=== PATIENT | female | born 1980 | race Caucasian/White ===

== ENCOUNTER 2022-11-04 08:51 | Outpatient (CLI) | payer BC, SELFPAY ==
--- NOTE | 2022-11-04 07:50 | ECHO_ITS ---
Patient Info Name: Micki Sims Age: 42 years : 1980 Gender: Female Ht: 63 in Wt: 126 lbs BSA: 1.60 m2 HR: 60 bpm BP: 100 / 68 mmHg Technical Quality: Good Exam Date: 11/04/2022 8:37 AM Exam Location: [facility] Patient Status: Outpatient Admit Date: 11/04/2022 Staff Ordering Physician: Kelby Peters MD Screen Printing Stencil Preparer: Yobani [place], LIBAN, RT Attending Provider: Kelby Peters MD Referring Physician: Lorraine MONTANO; Exam Type: CA echo doppler color flow Study Info Indications R07.9 - Chest pain, unspecified Complete two-dimensional, color flow and Doppler transthoracic echocardiogram is performed. Strain analysis performed. Summary 1. Complete two-dimensional, color flow and Doppler transthoracic echocardiogram is performed. 2. Left ventricular chamber dimension is normal. 3. Left ventricular systolic function is normal, estimated at 60-65%. 4. The left ventricular diastolic function is normal. 5. E/e' 5 is not elevated. 6. Global longitudinal strain is normal at -23.5%. 7. There is mild mitral valve regurgitation. 8. There is trace tricuspid valve regurgitation. Left Ventricle E/e' 5 is not elevated. Global longitudinal strain is normal at -23.5%. Left ventricular chamber dimension is normal. Left ventricular systolic function is normal, estimated at 60-65%. The left ventricular diastolic function is normal. Right Ventricle Right ventricular systolic function is normal and with normal TAPSE 2.0 cm. Right ventricular chamber dimension is normal. Left Atria Left atrial chamber dimension is normal. Right Atria Right atrial chamber dimension is normal. Aortic Valve The aortic valve is trileaflet. There is no aortic valve stenosis. There is no aortic valve regurgitation. Pulmonic Valve There is no pulmonic regurgitation. Mitral Valve There is no mitral valve stenosis. There is mild mitral valve regurgitation. Tricuspid Valve There is trace tricuspid valve regurgitation. RVSP is not calculated due to an inadequate TR jet. Pericardium/Pleural There is no pericardial effusion. Inferior Vena Cava Normal inferior vena cava with >50% collapse upon inspiration consistent with normal right atrial pressure, 5 mmHg. Aorta The aortic root size at the sinus of Valsalva is normal. Left Ventricular Outflow Tract Name Value Normal LVOT 2D LVOT Diameter 1.9 cm LVOT Doppler LVOT Peak Gradient 5 mmHg LVOT Mean Gradient 2 mmHg LVOT VTI 27 cm LVOT VTI/AV VTI Ratio 0.9 LVOT Stroke Volume 75 ml LVOT CO 3.9 l/min LVOT CI 2.4 l/min/m2 Mitral Valve Name Value Normal MV Doppler MV Peak
--- NOTE | 2022-11-04 08:03 | EST_ITS ---
Patient Info Name: Micki Sims Age: 42 years : 1980 Gender: Female Ht: 63 in Wt: 126 lbs BSA: 1.60 m2 HR: 52 bpm BP: 117 / 70 mmHg Heart Rhythm: Sinus Rhythm Exam Date: 11/04/2022 9:04 AM Exam Location: [facility] Patient Status: Outpatient Admit Date: 11/04/2022 Staff Ordering Physician: Kelby Peters MD Attending Provider: Kelby Peters MD Exercise Technologist: Ladi Santiago CT Exercise Physician: Manolo Machado DO Exam Type: CA stress test treadmill Study Info Indications R00.2 - Palpitations A treadmill exercise stress test was performed. Summary 1. 1. Negative Benjamin exercise stress test for ischemic ST changes by ECG criteria. 2. 2. Good functional capacity, achieving 12 METs of workload. 3. 3. Appropriate HR response to exercise. 4. 4. Appropriate HR recovery at 1 minute post exercise. 5. 5. No imaging with stress testing. 6. 6. Patient informed of the above results. Protocol: Benjamin Stress ECG Details Stage: REST Duration (min): 1 min : 4 sec Speed (mph): 0.0 Grade (%): 0 HR (bpm): 47 SBP (mmHg): 117 DBP (mmHg): 70 METS: --- Stage: REST Duration (min): 7 min : 11 sec Speed (mph): 0.0 Grade (%): 0 HR (bpm): 55 SBP (mmHg): 117 DBP (mmHg): 70 METS: --- Stage: STAGE 1 Duration (min): 1 min : 0 sec Speed (mph): 1.7 Grade (%): 10 HR (bpm): 81 SBP (mmHg): 117 DBP (mmHg): 70 METS: --- Stage: STAGE 1 Duration (min): 2 min : 0 sec Speed (mph): 1.7 Grade (%): 10 HR (bpm): 89 SBP (mmHg): 117 DBP (mmHg): 70 METS: --- Stage: STAGE 1 Duration (min): 3 min : 0 sec Speed (mph): 1.7 Grade (%): 10 HR (bpm): 94 SBP (mmHg): 116 DBP (mmHg): 64 METS: --- Stage: STAGE 2 Duration (min): 1 min : 0 sec Speed (mph): 2.5 Grade (%): 12 HR (bpm): 103 SBP (mmHg): 116 DBP (mmHg): 64 METS: --- Stage: STAGE 2 Duration (min): 2 min : 0 sec Speed (mph): 2.5 Grade (%): 12 HR (bpm): 111 SBP (mmHg): 148 DBP (mmHg): 62 METS: --- Stage: STAGE 2 Duration (min): 3 min : 0 sec Speed (mph): 2.5 Grade (%): 12 HR (bpm): 117 SBP (mmHg): 148 DBP (mmHg): 62 METS: --- Stage: STAGE 3 Duration (min): 1 min : 0 sec Speed (mph): 3.4 Grade (%): 14 HR (bpm): 122 SBP (mmHg): 185 DBP (mmHg): 65 METS: --- Stage: STAGE 3 Duration (min): 2 min : 0 sec Speed (mph): 3.4 Grade (%): 14 HR (bpm): 138 SBP (mmHg): 181 DBP (mmHg): 58 METS: --- Stage: STAGE 3 Duration (min): 3 min : 0 sec Speed (mph): 3.4 Grade (%): 14 HR (bpm): 146 SBP (mmHg): 166 DBP (mmHg): 63 METS: --- Stage: STAGE 4 Duration (min): 1 min : 0 sec Speed (mph): 4.2 Grade (%): 16 HR (bpm): 162 SBP (mmHg): 166 DBP (mmHg): 63 METS: ---
[2022-11-04 10:28] LABS: Basophils Percent Auto 0.5 % (0.2-1.2); Eosinophils Absolute Auto 0.1 K/mm3 (0-0.3); Eosinophils Percent Auto 2.1 % (0-4.4); Hematocrit 37.5 % (37.0-47.0); Hemoglobin 12.5 g/dL (12.0-15.0); Immature Granulocyte Absolute 0.01 K/mm3 (0.00-0.031); Immature Granulocyte Percent A 0.2 % (0-0.5); Lymphocytes Percent Auto 29.2 % (18.3-44.2); Mean Corpuscular HGB Conc 33.3 g/dl (32-36); Mean Corpuscular Hemoglobin 31.6 pg (26-34); Mean Corpuscular Volume 94.7 fl (80-100); Mean Platelet Volume 11.1 fl (7.4-10.4); Monocytes Absolute Auto 0.4 K/mm3 (0.1-0.6); Monocytes Percent Auto 6.5 % (2.6-8.5); Neutrophils Absolute Auto 3.6 K/mm3 (1.3-6.7); Neutrophils Percent Auto 61.5 % (45.5-73.1); Platelet Count Result 199 k/mm3 (150-375); Red Blood Count 3.96 M/mm3 (4.2-5.4); Red Cell Distribution Width 11.9 % (11.5-14.5); White Blood Count 5.8 K/mm3 (4.5-10.0)
[2022-11-04 10:35] LABS: Appearance Urine Clear (Clear); Bacteria Urine None Seen /hpf; Bilirubin Urine Negative (Negative); Blood Urine 1+ (Negative); Color Urine Yellow (Yellow); Glucose Urine UA Negative (Negative); Ketones Urine Negative (Negative); Leukocyte Esterase Ur Negative LEU/UL (NEGATIVE); Nitrate Urine Negative (Negative); Non Pathogenic Casts 0-2; Protein Urine Negative (Negative); RBC Urine 0-2 /hpf (0-2); Specific Grav Ur 1.016 (1.001-1.035); Squamous Epithelial Cell Urine Occasional /hpf (Few); Urobilinogen Urine 0.2 mg/dL (<2.0); WBC Urine 0-5 /hpf (0-3)
[2022-11-04 10:47] LABS: Alanine Aminotransferase 23 U/L (6-35); Albumin Level 4.1 g/dL (3.5-5.1); Alkaline Phosphatase 93 U/L (38-126); Anion Gap 6 mmol/L (8-16); Aspartate Amino Transferase 26 U/L (14-36); Bilirubin,Total 0.5 mg/dL (0.2-1.3); Blood Urea Nitrogen 16 mg/dL (7-17); Carbon Dioxide 27 mmol/L (22-30); Chloride 107 mmol/L (98-107); Cholesterol 179 mg/dL (0-200); Estimated Glomerular Filt Rate > 60; Glucose 89 mg/dL (65-110); HDL Direct 52 mg/dL; Potassium 3.9 mmol/L (3.4-5.0); Sodium 140 mmol/L (137-145); Triglycerides 53 mg/dL (<150)
[2022-11-04 10:48] LABS: Iron 93 ug/dL (37-170)
[2022-11-04 10:51] LABS: Rheumatoid Factor < 8.6 IU/ML (<12)
[2022-11-04 10:55] LABS: Add Urine Microscopic? YES
[2022-11-04 10:57] LABS: Erythrocyte Sedimentation Rate 23 mm/hr (0-20)
[2022-11-04 10:58] LABS: LDL Cholesterol Direct 102 mg/dL
[2022-11-04 11:53] LABS: Folic Acid 12.8 ng/mL (2.76->20)
--- NOTE | 2022-11-06 12:31 | WPDHOLTEREM ---
Holter/Event Monitor Holter/Event Monitor Date of procedure: 11/04/22 Holter/Event Procedure: 24 Hr Holter Monitor Indications: Chest pain Conclusion: 1. 24 hour holter monitor on 11/04/22. 2. Underlying rhythm is sinus rhythm. HR range 37-138 bpm; average HR 68 bpm. 3. There are 5 premature supraventricular complexes and 1 supraventricular couplet. No supraventricular tachycardia. 4. There are 159 premature ventricular complexes. No ventricular tachycardia. 5. No sinoatrial or atrioventricular blocks. No significant pauses greater than 2 seconds. 6. Patient reports symptom of rapid heart rate which demonstrate sinus rhythm at 63 bpm.
[2022-11-07 13:18] LABS: ANA Cascade Screen Negative (Negative)
== END 2022-11-04 08:52 | disposition home or self-care (01) ==
PROVIDERS: PCP Family Medicine; Visit Provider Family Medicine
DX: R07.89 Other chest pain (principal); R00.2 Palpitations; I34.0 Nonrheumatic mitral (valve) insufficiency; M19.90 Unspecified osteoarthritis, unspecified site; M54.50 Low back pain, unspecified; G89.29 Other chronic pain; E78.2 Mixed hyperlipidemia; F41.9 Anxiety disorder, unspecified
CPT/HCPCS: 36415; 80053; 80061; 81001; 82607; 82728; 82746; 83540; 84439; 84443; 85025; 85652; 86038; 86430; 93017; 93225; 93226; 93306

== ENCOUNTER 2022-12-23 15:08 | Outpatient (CLI) | payer BC, SELFPAY ==
--- NOTE | ~2022-12-23 | MM_ITS ---
EXAMINATION: MM screening shboha BI w shira HISTORY: Screening mammogram TECHNIQUE: Craniocaudal and mediolateral oblique 3-D tomosynthesis images were obtained and synthetic 2-D images were generated. CAD analysis was submitted and interpreted. COMPARISON: None, baseline BREAST PARENCHYMAL COMPOSITION: The breasts are heterogeneously dense, which may obscure small masses . FINDINGS: No suspicious mass, calcification, or architectural distortion are identified in either valerio ast to suggest malignancy. IMPRESSION: 1. No mammographic evidence of malignancy. 2. Recommend routine screening mammography in one year. BI-RADS Category 1: Negative Reviewed, dictated and finalized at location A.
== END 2022-12-23 15:09 | disposition home or self-care (01) ==
PROVIDERS: PCP Family Medicine; Visit Provider Family Medicine
DX: Z12.31 Encounter for screening mammogram for malignant neoplasm of breast (principal)
CPT/HCPCS: 77063; 77067

== ENCOUNTER 2023-11-17 15:18 | Outpatient (CLI) | payer OTHER, SELFPAY ==
--- NOTE | ~2023-11-17 | CT_ITS ---
EXAMINATION: CT abdomen pelvis wo con DATE: 11/17/2023 15:49 INDICATION: Microscopic hematuria. Acute lower abdominal pain. TECHNIQUE: Computed tomography (CT) of the abdomen and pelvis was performed without intravenous contr ast. Automated exposure control and iterative reconstruction technique were employed. The dose-length product was 264.18 mGy-cm. COMPARISON: None FINDINGS: Visualized lower lungs are clear. Heart size is normal. Atherosclerotic coronary artery calcific a cy st versus stenting along the left anterior descending coronary artery. No pericardial or pleural effu armando. Liver, gallbladder, spleen, pancreas and bilateral adrenal glands are normal. Bilateral nonobst ructing nephrolithiasis with 6 mm and 2 mm stones at a lower pole calyx of the right kidney and 1 cm stone at a lower pole calyx of the left kidney. No ureteral stones or hydronephrosis. There is mild c olonic diverticulosis with a sigmoid predominance. There is no adjacent inflammatory change to sugge st diverticulitis. Small bowel and appendix are normal. Bladder, uterus and left adnexa are unremark able. 2.5 cm right adnexal cyst/follicle. No free intraperitoneal gas or fluid. No pathologically enl arged abdominal or pelvic lymphadenopathy. Severe disc height loss at L5-S1. Additional more cephalad mild lumbar and moderate lower thoracic spondylosis. IMPRESSION: 1. Bilateral nonobstructing nephrolithiasis. Reviewed, dictated and finalized at location B.
== END 2023-11-17 15:19 | disposition home or self-care (01) ==
LOC: ANHIMG 15:20
PROVIDERS: Visit Provider Family Medicine
DX: N20.0 Calculus of kidney (principal)
CPT/HCPCS: 74176

== ENCOUNTER → 2024-12-12 16:40 | Outpatient (CLI) | payer OTHER, SELFPAY ==
--- NOTE | ~2024-12-12 | XR_ITS ---
AP view of the pelvis and AP and lateral views of the left hip Clinical history: Arthritis Findings: No acute fracture or dislocation is seen. Osseous alignment is anatomic. Bilateral hip and SI joint spaces are preserved. Soft tissues are unremarkable. Impression: No significant abnormality is seen. Reviewed, dictated and finalized at location . Impression: No significant abnormality is seen.
--- OUTSIDE RECORDS SUMMARY | 2024-12-12 17:09 | XMS_ITS | CONTINUITY OF CARE DOCUMENT ---
Author Name malorie espana Address Unknown Organization [facility] Address [address] [place] [address] Phone [phone] Care Team Providers Care Photolithographic Stripper Name Role Phone Tricia Peguero MD Unavailable Tricia Peguero MD Unavailable [phone] MARGARET LEVY MD Unavailable [phone] PROBLEMS Condition Status Date Provider Notes AMI anterior wall active Tricia Rico Hypercholesterolemia active Tricia goldsmith MD Tobacco abuse- hx of active Tricia goldsmith MD Kidney stones active Tricia Pegeuro MD Cardiovascular Condition Screening active S leighton Peguero MD Cardiomyopathy active Tricia Peguero MD Cardiology examination active Scott Dumont Preop cardiovasc. examination active Scott Dumont ENCOUNTERS Date Type Provider Location Encounter Diag nosis 4 - 7 In-person encounter Office Visit Tricia Peguero MD [facility] Cardiology examinationPreop cardiovasc. examination 6 - 8 In-person encounter Office Visit Tricia Peguero MD [facility] 9 - 1 In-person encounter Office Visit Tricia Peguero MD [facility] Cardiomyopathy 1 - 4 In-person encounter Office Visit Tricia Peguero MD [facility] AMI anterior wallHypercholesterolemiaTobacco abuse- hx ofKidney stonesCardiovascular Condition Screening VITAL SIGNS Date Observation Value Provider Body Mass Index (Ratio) 23.86 kg/m2 Puma Dumont blood pressure, diastolic 69 mm[Hg] Ky linda Lofton blood pressure, systolic 125 mm[Hg] Melissa katz Lofton oxygen saturation, oximetry 100 % [facility] pulse rate 53 /min [facility] blood pressure, cuff size regular Dave linda Lofton weight E&M 139.0 [lb_av] Kyaron Lofton height E&M 64 [in_i] [facility] Body Mass Index (Ratio) 23.51 kg/m2 Daphney ssa Puhse blood pressure, diastolic 59 mm[Hg] Li nkLogic blood pressure, systolic 113 mm[Hg] Hanh kLogic pulse rate 54 /min Barb Posley respiratory rate E&M 16 /min Barb Posley oxygen saturation, oximetry 99 % Barb Posley blood pressure, cuff size regular Le slie Posley blood pressure, diastolic 59 mm[Hg] Le slie Posley blood pressure, systolic 113 mm[Hg] Les lie Posley weight E&M 137 [lb_av] Barb Posley height E&M 64 [in_i] Barb Posley Body Mass Index (Ratio) 23.00 kg/m2 Sid Peguero MD blood pressure, diastolic 67 mm[Hg] Bridget Gutierrez blood pressure, systolic 109 mm[Hg] Any agus Gutierrez pulse rate 55 /min Pollyagus Gutierrez weight E&M 134 [lb_av] Polly Matt blood pressure, cuff size regular An shailesh Gutierrez height E&M 64 [in_i] Polly Gutierrez Body Mass Index (Ratio) 22.31 kg/m2 Daphney larkin Puhse blood pressure, diastolic 59 mm[Hg] Lena nkLogic blood pressure, systolic 104 mm[Hg] Hanh kLogic blood pressure, cuff size regular Edenilson novak [place] blood pressure, diastolic 59 mm[Hg] Edenilson novak [place] blood pressure, systolic 104 mm[Hg] Carlton [facility] pulse rate 54 /min Brenda [place] oxygen saturation, oximetry 100 % Brenda [place] respiratory rate E&M 18 /min Brenda Edelmira iller weight E&M 130 [lb_av] Brenda [place] height E&M 64 [in_i] Brenda [place] ALLERGIES No Known Drug Allergies HISTORY OF MEDICATION USE Medication Status Instructions Dates Provider Indications Com ments atorvastatin 40 mg tablet active Take 1 tablet by mouth once daily Tricia Peguero MD losartan 25 mg tablet active Take 1/2 tablet by mouth once a day CHECK BLOOD PRESSURE AND HEART RATE BEFORE TAKING THIS MEDICATION Tricia Peguero MD losartan 25 mg tablet completed Take 1 tablet by mouth once a day CHECK BLOOD PRESSURE AND HEART RATE BEFORE TAKING THIS MEDICATION - Tricia Peguero MD losartan 25 mg tablet completed TAKE 1 TABLET BY MOUTH ONCE A DAY. CHECK BLOOD PRESSURE AND HEART RATE BEFORE TAKING THIS MEDICATION - Judith Desouza atorvastatin 40 mg tablet completed TAKE ONE TABLET BY MOUTH ONCE DAILY - Tricia Peguero MD losartan 25 mg tablet completed TAKE 1/2 TABLET BY MOUTH ONCE A DAY. CHECK BLOOD PRESSURE AND HEART RATE BEFORE TAKING THIS MEDICATION - Sathish [place] duloxetine 30 mg capsule,delayed release(DR/EC) active [facility] aspirin 81 mg tablet,delayed release (DR/EC) active Take 1 tablet by mouth once a day TAKE 1 TABLET BY MOUTH ONCE A DAY Tricia Peguero MD clopidogrel 75 mg tablet active TAKE 1 TABLET BY MOUTH EVERY DAY Tricia Peguero MD sulfamethoxazol e-trimethoprim 800-160 mg tablet completed - Constantino Galan NP losartan 25 mg tablet completed Take 1/2 tablet by mouth once a day - Sathish atorvastatin 20 mg tablet completed TAKE ONE TABLET BY MOUTH ONCE DAILY - Constantino Galan NP SOCIAL HISTORY Date Observation Value Provider personal history of marijuana use no Tricia Peguero MD drug use no Tricia goldsmith MD alcohol use, average drinks per day darby Peguero MD alcohol use yes Tricia goldsmith MD smoking, year quit 2023 Tricia Peguero MD cigarette use yes Tricia doss MD smoking status Former smoker Tricia lara MD personal history of marijuana use no Tricia Peguero MD drug use no Tricia goldsmith MD alcohol use, average drinks per day darby Peguero MD alcohol use yes Tricia goldsmith MD smoking, year quit 2023 Tricia Peguero MD cigarette use yes Tricia doss MD smoking status Former smoker Tricia lara MD personal history of marijuana use no Constantino Galan NP drug use no Constantino Galan NP alcohol use, average drinks per day sociagus Galan NP alcohol use yes Constantino Galan NP smoking, year quit 2023 Polly Rashaun ia cigarette use yes Polly Gutierrez smoking status Former smoker Polly rivas number of grandchildren Tricia Peguero MD FUNCTIONAL STATUS Date Observation Value Provider HRA, CV Assess/Plan, Angina (inactive) Management Plan continue current therapy Tricia Peguero MD HRA, CV Assess/Plan, Angina (inactive) Management Plan continue current therapy Tricia Peguero MD HRA, CV Assess/Plan, Angina (inactive) Management Plan continue current therapy Constantino Galan NP INSURANCE PROVIDERS Payer name Policy type / Coverage type [employer] party ID [id number] Other [id number] ADVANCE DIRECTIVES Name Date DISCUSSED - NO DECISION MADE TREATMENT PLAN Date Name Performer Cardiology:CAD SHAY x 2 LAD 3x 18 and 3.5 x 18 Xience 10/27/23 Her updated medication list for this problem includes: Clopidogrel 75 Mg Tablet (Clopidogrel) ..... Take 1 tablet by mouth every day Aspirin 81 Mg Tablet,delayed Release (dr/ec) (Aspirin) ..... Take 1 tablet by mouth once a day take 1 tablet by mouth once a day 2 stents LAD DAPT asa/plavix r emains on dapt will need to complete 12 months August 09, 2024 c ontinues ASA plavix no bleeding issues T his visit has been a part of the consistent, comprehensive, and ongoing management of the chronic medical condition(s) listed above for the patient. Tricia Peguero MD Cardiology: l ast ov n ot a candidate to have any surgical procedure done for at least 90 days p referably 6 months or more to reduce the risk of sub acute stent thrombosis. December 03, 2023 e very so often has blood in urine but otherwise no symptoms currently W ILL NEED TO HOLD OFF ON KIDNEY STONE SURGICAL MANAGEMENT SHE NEEDS TO COMPLETE ATLEAST 6M PREFERABLY 12M DAPT WITH ASA PLAVIX FOR EXTENSIVE CAD NOTED IN THE LAD April 21, 2024 S he is having hematuria. No clots. Will need to check her hemoglobin level IF HEMATURIA WORSENS.Will need to see a urologist. HEMATURIA IS INTERMITTENT. ARRANGE FOR KIDNEY CT TO BE DONE TO COMPARE TO PREV CT DONE IN OctAugust 09, 2024 n o recent issues Tricia Peguero MD Cardiology: N ot smoking Tricia Peguero MD Cardiology: H er updated medication list for this problem includes: Atorvastatin 40 Mg Tablet (Atorvastatin) ..... Take 1 tablet by mouth once daily This visit has been a part of the consistent, comprehensive, and ongoing management of the chronic medical condition(s) listed above for the patient. Tricia Peguero MD Cardiology:planning on having colonoscopy on Oct 23 2024, she will have completed just shy of a few days one year of DAPT, it will be okay for her to come off of plavix 3-5 days prior to procedure and resume afterwards. Upon review of invasive and noninvasive testing and recent exam the patient is an acceptable candidate for the planned surgical procedure recommend to maintain his blood pressure range of 110 to 140 mmHg and a heart rate of 60-80 B p.m.. It is okay to use IV beta blockers calcium channel blockers nitrates and afterload reducing agents to maintain the aforementioned hemodynamics parameters. Tele monitoring and EKG should be done if the patient has arrhythmia during procedure Tricia Peguero MD Cardiology: O K TO D/C LIFEVEST LVEF WAS APPROX 60% ON TODAYS ECHO ON December 03, 2023 M ILD MR NOTED ON ECHO. April 21, 2024 M arked improvement of LV function post CT, echo EF normalized to 60-65% Tricia Peguero MD Cardiology: H er updated medication list for this problem includes: Clopidogrel 75 Mg Tablet (Clopidogrel) ..... Take 1 tablet by mouth every day Aspirin 81 Mg Tablet,delayed Release (dr/ec) (Aspirin) ..... Take 1 tablet by mouth once a day take 1 tablet by mouth once a day 2 stents LAD DAPT asa/plavix r emains on dapt will need to complete 12 months Tricia Peguero MD Cardiology:Lipids re viewed continue on Lipitor 40 mg H er updated medication list for this problem includes: Atorvastatin 40 Mg Tablet (Atorvastatin) ..... Take one tablet by mouth once daily This visit has been a part of the consistent, comprehensive, and ongoing management of the chronic medical condition(s) listed above for the patient. Tricia Peguero MD Cardiology: l ast ov n ot a candidate to have any surgical procedure done for at least 90 days p referably 6 months or more to reduce the risk of sub acute stent thrombosis. December 03, 2023 e very so often has blood in urine but otherwise no symptoms currently W ILL NEED TO HOLD OFF ON KIDNEY STONE SURGICAL MANAGEMENT SHE NEEDS TO COMPLETE ATLEAST 6M PREFERABLY 12M DAPT WITH ASA PLAVIX FOR EXTENSIVE CAD NOTED IN THE LAD April 21, 2024 S he is having hematuria. No clots. Will need to check her hemoglobin level IF HEMATURIA WORSENS.Will need to see a urologist. HEMATURIA IS INTERMITTENT. ARRANGE FOR KIDNEY CT TO BE DONE TO COMPARE TO PREV CT DONE IN OCT Tricia Peguero MD Cardiology:Not smoking Tricia Peguero MD Cardiology: a ssure WCD until next echo is completed April 21, 2024 N o need for ICD since her LV function is normal Tricia Peguero MD Cardiology:OK TO D/C LIFEVEST LVEF WAS APPROX 60% ON TODAYS ECHO ON December 03, 2023 M ILD MR NOTED ON ECHO. Constantino Galan NP Cardiology:last ov n ot a candidate to have any surgical procedure done for at least 90 days p referably 6 months or more to reduce the risk of sub acute stent thrombosis. December 03, 2023 e very so often has blood in urine but otherwise no symptoms currently W ILL NEED TO HOLD OFF ON KIDNEY STONE SURGICAL MANAGEMENT SHE NEEDS TO COMPLETE ATLEAST 6M PREFERABLY 12M DAPT WITH ASA PLAVIX FOR EXTENSIVE CAD NOTED IN THE LAD Constantino Galan NP Cardiology: T OTAL 150, TRI 77, HDL 65, LDL 70, LPa 49.2 (11/2023) H er updated medication list for this problem includes: Atorvastatin 20 Mg Tablet (Atorvastatin) ..... Take one tablet by mouth once daily i nrease lipitor to 40mg Constantino Galan NP Cardiology: 2 stents LAD DAPT asa/plavix r emains on dapt will need to complete 12 months Constantino Galan NP Cardiology:assure WCD until next echo is completed Tricia Peguero MD Cardiology:not a can didate to have any surgical procedure done for at least 90 days p referably 6 months or more to reduce the risk of sub acute stent thrombosis. Triica Peguero MD Cardiology:2 stents LAD DAPT asa plavix Tricia Peguero MD Cardiology: H er updated medication list for this problem includes: Atorvastatin 20 Mg Tablet (Atorvastatin) ..... Take one tablet by mouth once daily Tricia Peguero MD Date Name LIPID PANEL COMPREHENSIVE METABO LIC PANEL, W/EGFR CT Abdomen/pelvis wi thout contrast Cardiac Rehab LIPID PANEL Lipoprotein (a) LIPID PANEL COMPREHENSIVE METABO LIC PANEL, W/EGFR Complete Echo EKG HISTORY OF PROCEDURES Procedure Date Procedure Name Provider Procedure Notes S tatus EKG Tricia Peguero MD compl eted Complex e/m visit add on Tricia Peguero MD completed EKG Tricia Peguero MD compl eted EKG Tricia Peguero MD compl eted
--- OUTSIDE RECORDS SUMMARY | 2024-12-12 17:09 | XMS_ITS | Continuity of Care Document ---
Author Organization [facility] Address [address] [place] [address] [place] [address] Phone Care Team Providers Care Email Specialist Name Role Phone Niall Milian DO Unavailable Unavailable Advance Directives Directive Yes / No Effective Date File Name No Information Encounters Encounter Description Practice Location Reason(s) For Visit Diagnoses Date Provider Providers Copied on Encounter [facility], [address], [place], [place], [id number], tel:[phone] [facility] No Information Maicol Muller. [address] [place], [address], [place]. tel: [phone] Family History Family Member Type Diagnosis Age At Onset No Information Payers Payer name Insurance type Covered libertarian ID Authoriza tiboyd(s) Gan [place] WC [id number] Social History Type Description Quantity Date Captured [...]
== END ==
PROVIDERS: PCP Family Medicine; Visit Provider Family Medicine
DX: M16.12 Unilateral primary osteoarthritis, left hip (principal); G89.29 Other chronic pain
CPT/HCPCS: 73502

== ENCOUNTER 2024-12-19 00:46 | Day surgery (SDC) | payer OTHER, SELFPAY ==
[2024-10-16 15:45] VITALS: BMI 24.0
--- NOTE | 2024-10-16 16:58 | PC.NURSE ---
Spoke with _patient regarding medication Plavix. Patient verbalizes understanding that the last dose is to be taken on 10/18/2024 and the Endoscopist will instruct them when to restart after the procedure.
--- OUTSIDE RECORDS SUMMARY | 2024-10-23 00:25 | XMS_ITS | Continuity of Care Document ---
Author Organization [facility] Address [address] [place] [address] [place] [address] Phone Care Team Providers Care Merchandise Complaint Adjuster Name Role Phone Niall Milian DO Unavailable Unavailable Advance Directives Directive Yes / No Effective Date File Name No Information Encounters Encounter Description Practice Location Reason(s) For Visit Diagnoses Date Provider Providers Copied on Encounter [facility], [address], [place], [place], [id number], tel:[phone] [facility] No Information Maicol Muller. [address] [place], [address], [place]. tel: [phone] Family History Family Member Type Diagnosis Age At Onset No Information Payers Payer name Insurance type Covered democrat ID Authoriza tiboyd(s) Gan [place] WC [id number] Social History Type Description Quantity Date Captured Comments Sex Female Smoking Status No Information Chief Complaint And Reason For Visit No Information Reason For Referral Reason For Referral No Information History Of Present Illness Encounter Date Complaint History Of Prese nt Illness No Information Functional Status Date Functional Assessmen t No Information Instructions Date Instruction Additional Infor mation No Information Assessments Type Assessment Date No Information Patient Care Teams Name Effective Dates (start - stop) Status Members No Information
--- NOTE | 2024-10-23 10:20 | SUR.OPER ---
Pt called regarding scheduled colonoscopy today because she did not come in. Pt states that she took her Plavix on 10/19/2024 when she was instructed to take her last dose on 10/18/2024. Pt states she called the exchange and notified the physician who explained that she would need to stop her Plavix 7 days in advance of her procedure and therefore cancelled the colonoscopy today. Pt given Dr. Pelletier office number to reschedule.
[2024-12-11 14:39] VITALS: BMI 24.0
--- NOTE | 2024-12-11 14:46 | SUR.PREOP ---
Spoke with patient in regards to procedure on 12/19/2024. Patient is aware that last dose of plavix is to be taken on 12/14/24 and that the endoscopist will inform her when to restart the plavix.
--- OUTSIDE RECORDS SUMMARY | 2024-12-19 00:49 | XMS_ITS | Continuity of Care Document ---
Author Organization [facility] Address [address] [place] [address] [place] [address] Phone Care Team Providers Care Superintendent Pipelines Name Role Phone Niall Milian DO Unavailable Unavailable Advance Directives Directive Yes / No Effective Date File Name No Information Encounters Encounter Description Practice Location Reason(s) For Visit Diagnoses Date Provider Providers Copied on Encounter [facility], [address], [place], [place], [id number], tel:[phone] [address] [facility] No Information Maicol Muller. [address] [place], [address], [place]. tel: [phone] Family History Family Member Type Diagnosis Age At Onset No Information Payers Payer name Insurance type Covered republican ID Authoriza tiboyd(s) [place] [id number] Social History Type Description Quantity Date Captured [...]
--- OUTSIDE RECORDS SUMMARY | 2024-12-19 00:49 | XMS_ITS | CONTINUITY OF CARE DOCUMENT ---
Author Name malorie espana Address Unknown Organization [facility] Address [address] [facility] [address] [place] [address] Phone [phone] Care Team Providers Care Bagger Meat Name Role Phone Tricia Peguero MD Unavailable [phone] Tricia Peguero MD Unavailable MARGARET LEVY MD Unavailable [phone] PROBLEMS Condition Status Date Provider Notes AMI anterior wall active Tricia Rico Hypercholesterolemia active Tricia goldsmith MD Tobacco abuse- hx of active Tricia goldsmith MD Kidney stones active Tricia Peguero MD Cardiovascular Condition Screening active S leighton Peguero MD Cardiomyopathy active Tricia Peguero MD Cardiology examination active Scott Dumont Preop cardiovasc. examination active Scott Dumont ENCOUNTERS Date Type Provider Location Encounter Diag nosis 4 - 7 In-person encounter Office Visit Tricia Peguero MD [facility] Cardiology examinationPreop cardiovasc. examination 6 - 8 In-person encounter Office Visit Tricia Peguero MD [facility] 9 - 1 In-person encounter Office Visit Tricia Peguero MD [facility] Cardiomyopathy 1 - 4 In-person encounter Office Visit Tricia Peguero MD [facility] AMI anterior wallHypercholesterolemiaTobacco abuse- hx ofKidney stonesCardiovascular Condition Screening VITAL SIGNS Date Observation Value Provider Body Mass Index (Ratio) 23.86 kg/m2 Puma Dumont blood pressure, diastolic 69 mm[Hg] Ky linda Lofton blood pressure, systolic 125 mm[Hg] Melissa katz Lofton oxygen saturation, oximetry 100 % [facility] pulse rate 53 /min [facility] blood pressure, cuff size regular Dave linda Lofton weight E&M 139.0 [lb_av] Kyaron Lofton height E&M 64 [in_i] [facility] [place] Body Mass Index (Ratio) 23.51 [...] Campbell blood pressure, systolic 104 mm[Hg] Carlton [facility] pulse rate 54 /min Brenda Ballico oxygen saturation, oximetry 100 % Brenda Ballico respiratory rate E&M 18 /min Brenda Edelmira iller weight E&M 130 [lb_av] Brenda Ballico height E&M 64 [in_i] Brenda Campbell ALLERGIES [...] Spencer duloxetine 30 mg capsule,delayed release(DR/EC) active [facility] aspirin 81 mg tablet,delayed release (DR/EC) active [...] Payer name Policy type / Coverage type [place] [employer] party ID [id number] Other [id number] ADVANCE DIRECTIVES Name Date DISCUSSED - NO [...] M arked improvement of LV function post ME, echo EF normalized to 60-65% Tricia Peguero [...] the risk of sub acute stent thrombosis. Tricia Peguero MD Cardiology:2 stents LAD DAPT asa [...]
[2024-12-19 11:48] VITALS: BP 117/57; PULSE 58; RESP 16; TEMP 36.8; O2SAT 100
[2024-12-19 11:53] LABS: BEDSIDEPREGUCG Negative (Negative)
[2024-12-19] MEDS: LACTATED RINGERS 1,000 ML 150 ML IV CONT (11:57)
--- NOTE | 2024-12-19 12:24 | P.PNAN_ITS ---
Anes - Initial Pre Proc Eval Procedure: Operation Date: 12/19/24 12:30 Proposed Procedures p Screening Colonoscopy - Juan F Tsang MD Date/Time: 12/19/24 12:24 Surgeon: Juan F Tsang MD Pre Op Diagnosis: neoplasm screening Patient Data Age: 44 Gender: F Height: 1.63 m Weight: 60.1 kg Last Vital Signs Temp 36.8 C 12/19/24 11:48 Pulse 58 L 12/19/24 11:48 Resp 16 12/19/24 11:48 BP 117/57 L 12/19/24 11:48 Pulse Ox 100 12/19/24 11:48 O2 Del Method Room Air 12/19/24 11:48 Allergies Allergy/AdvReac Type Severity Reaction Status Date / Time ticagrelor (From Brilinta) AdvReac Intermediate Dyspnea / Verified 12/19/24 11:43 SOB Septra ds AdvReac Mild Rash Uncoded 12/19/24 11:43 Home Medications ?Medication ?Instructions ?Recorded ?Confirmed ?Type aspirin 81 mg tablet,delayed 81 mg PO DAILY 11/05/23 12/19/24 History release clopidogrel 75 mg tablet (Plavix) 75 mg PO DAILY 11/05/23 12/19/24 History losartan 25 mg tablet 12.5 mg PO DAILY 11/05/23 12/19/24 History atorvastatin 40 mg tablet 40 mg PO DAILY 12/24/23 12/19/24 History duloxetine 30 mg capsule,delayed 30 mg PO DAILY #30 caps 12/18/24 12/19/24 Rx release Laboratory Tests 12/19/24 11:48 POC Urine HCG, Qual Negative (Negative) Patient hx anesthesia problems: none Family hx anesthesia problems: none Results Review: All pre-operative results and documents have been reviewed as part of the pre- operative evaluation. [facility] Past Medical History Medical History Chronic left hip pain X-rays of the left hip and pelvis were normal 12/12/2024. BMI 24.0-24.9, adult Colon cancer screening Acute non-recurrent maxillary sinusitis Rash (~11/17/23) rash on face and neck possibly from Septra DS from 11/01/2023 BMI 23.0-23.9, adult Acute abdominal pain Stat CT abdomen and pelvis 11/17/2023 with bilateral nonobstructing renal stones with no acute findings. No diverticulitis. 2.5 cm right renal cyst. Severe spondylosis lumbar spine At L5-S1. Mixed hyperlipidemia total cholesterol 179 with triglycerides 53 and HDL 52 and LDL 102 on 11/04/2022. GERD (gastroesophageal reflux disease) resolved after treatment of CAD CAD (coronary artery disease) 2 drug-eluting stents in the LAD 10/27/2023. cardiomyopathy with ejection fraction 30%, improved to 50 to 55 % on echo 11/02/2023. Apical hypokinesis noted. EF 65% 12/03/2023. NSTEMI (non-ST elevated myocardial infarction) (10/26/23) Two drug-eluting stents placed in the LAD 10/27/2023. Microscopic hematuria (11/04/22) 1+ blood on urinalysis 11/04/2022. History of stones. CT of the abdomen and pelvis 11/17/2023 with nonobstructing renal stones with 6 mm and 2 mm stone at the lower pole of the right kidney and a 1 cm stone at the lower pole of the left kidney. 2.5 cm right adnexal cyst noted. Tobacco use disorder, continuous 1/2 of a pack cigarettes daily. discontinued smoking with [place] on 10/26/2022 COVID-19 (~04/2021) Arthritis Sedimentation rate elevated at 23, CECY negative, rheumatoid factor less than a 0.6 on 11/04/2022. Chronic anxiety Breast cancer screening by mammogram Normal mammogram 12/23/2022 with recheck in 1 year. BMI 22.0-22.9, adult Migraine headache without aura Chronic low back pain without sciatica Severe disc height loss at L5-S1 on CT of the abdomen 11/17/2023. Atypical chest pain Exercise stress test normal 11/04/2022. echo normal 11/04/2022. Palpitation Holter monitor 11/04/2022 with sinus rhythm with frequent PVCs. Family History Family History Sibling Hypertension Social History Social History Years smoked: 30 Smoking status: Current some day smoker Tobacco type: cigarettes Smoking end date: 10/26/23 Alcohol intake: current Drinks per week: 4 Alcohol use details: light beer, awais twice monthly Substance use: never Substance use type: does not use Lack of Transportation: No Lack of Food: Never True Current Housing: I Have Housing Concerned About Future Housing: No Difficulty Paying Gas/Electric Bills: No Difficulty Paying for Meds: No Currently Unemployed: No Education: High School Diploma/GED Difficulty w/ Childcare or Family Care: No Living arrangements: with family Anes - Eval Final PreProcedure Day of Procedure 12/19/24 12:24 Patient weight: normal Heart: regular rate and rhythm Lungs: clear to auscultation Airway: Mallampati scale class II Neurological: alert and oriented Last oral intake: >/= 8 hours ASA classification: III Emergent: no Anesthetic plan: proceed Anesthesia type and monitoring: general GIVS and standard monitoring Results Review: All pre-operative results and documents have been reviewed as part of the pre- operative evaluation. Informed Consent: The patient's anesthetic plan and its attendant risks and benefits were discussed with the patient/family/POA. Questions were solicited and answers provided to the satisfaction of the patient/family/POA.
--- NOTE | 2024-12-19 12:47 | PM.HPGS ---
History of Present Illness History of Present Illness Consent: Risks, benefits, and alternatives have been discussed and questions answered. Patient agrees to proceed with procedure. Chief complaint: neoplasm screening Narrative: Micki Sims is a 44 year old female here for first screening colonoscopy Review of Systems Review of Systems: All systems reviewed & are unremarkable except as noted in HPI and below PMFSH Past Medical History Medical History Chronic left hip pain X-rays of the left hip and pelvis were normal 12/12/2024. BMI 24.0-24.9, adult Colon cancer screening Acute non-recurrent maxillary sinusitis Rash (~11/17/23) rash on face and neck possibly from Septra DS from 11/01/2023 BMI 23.0-23.9, adult Acute abdominal pain Stat CT abdomen and pelvis 11/17/2023 with bilateral nonobstructing renal stones with no acute findings. No diverticulitis. 2.5 cm right renal cyst. Severe spondylosis lumbar spine At L5-S1. Mixed hyperlipidemia total cholesterol 179 with triglycerides 53 and HDL 52 and LDL 102 on 11/04/2022. GERD (gastroesophageal reflux disease) resolved after treatment of CAD CAD (coronary artery disease) 2 drug-eluting stents in the LAD 10/27/2023. cardiomyopathy with ejection fraction 30%, improved to 50 to 55 % on echo 11/02/2023. Apical hypokinesis noted. EF 65% 12/03/2023. NSTEMI (non-ST elevated myocardial infarction) (10/26/23) Two drug-eluting stents placed in the LAD 10/27/2023. Microscopic hematuria (11/04/22) 1+ blood on urinalysis 11/04/2022. History of stones. CT of the abdomen and pelvis 11/17/2023 with nonobstructing renal stones with 6 mm and 2 mm stone at the lower pole of the right kidney and a 1 cm stone at the lower pole of the left kidney. 2.5 cm right adnexal cyst noted. Tobacco use disorder, continuous 1/2 of a pack cigarettes daily. discontinued smoking with [place] on 10/26/2022 COVID-19 (~04/2021) Arthritis Sedimentation rate elevated at 23, CECY negative, rheumatoid factor less than a 0.6 on 11/04/2022. Chronic anxiety Breast cancer screening by mammogram Normal mammogram 12/23/2022 with recheck in 1 year. BMI 22.0-22.9, adult Migraine headache without aura Chronic low back pain without sciatica Severe disc height loss at L5-S1 on CT of the abdomen 11/17/2023. Atypical chest pain Exercise stress test normal 11/04/2022. echo normal 11/04/2022. Palpitation Holter monitor 11/04/2022 with sinus rhythm with frequent PVCs. Family History Family History Sibling Hypertension Social History Social History Years smoked: 30 Smoking status: Current some day smoker Tobacco type: cigarettes Smoking end date: 10/26/23 Alcohol intake: current Drinks per week: 4 Alcohol use details: light beer, awais twice monthly Substance use: never Substance use type: does not use Lack of Transportation: No Lack of Food: Never True Current Housing: I Have Housing Concerned About Future Housing: No Difficulty Paying Gas/Electric Bills: No Difficulty Paying for Meds: No Currently Unemployed: No Education: High School Diploma/GED Difficulty w/ Childcare or Family Care: No Living arrangements: with family Meds Home Medications and Allergies Home Medications ?Medication ?Instructions ?Recorded ?Confirmed ?Type aspirin 81 mg tablet,delayed 81 mg PO DAILY 11/05/23 12/19/24 History release clopidogrel 75 mg tablet (Plavix) 75 mg PO DAILY 11/05/23 12/19/24 History losartan 25 mg tablet 12.5 mg PO DAILY 11/05/23 12/19/24 History atorvastatin 40 mg tablet 40 mg PO DAILY 12/24/23 12/19/24 History duloxetine 30 mg capsule,delayed 30 mg PO DAILY #30 caps 12/18/24 12/19/24 Rx release Allergies Allergy/AdvReac Type Severity Reaction Status Date / Time ticagrelor (From Brilinta) AdvReac Intermediate Dyspnea / Verified 12/19/24 11:43 SOB Septra ds AdvReac Mild Rash Uncoded 12/19/24 11:43 Vital Signs Vital Signs - 24 hr 12/19/24 11:48 Temperature 98.3 F Pulse Rate 58 L Respiratory Rate 16 Blood Pressure 117/57 L Pulse Oximetry 100 Oxygen Delivery Room Air Exam Const: General: comfortable and no acute distress HENMT: Face/Nose/Sinus: Normal nares present Eyes: General: appearance normal, both eyes and all related structures Neck: Neck: no JVD Resp: Auscultation: clear to auscultation bilaterally Cardio: Rate: regular rate Rhythm: regular rhythm GI: Inspection: non-distended GI Palp: Yes Soft to palpation Skin: General skin exam: normal color Neuro: General: gait normal Speech: normal speech Extrem: General: normal to inspection Psych: Mental Status: mental status grossly normal Assessment and Plan Assessment and plan (1) Colon cancer screening: Code(s): Z12.11 - Encounter for screening for malignant neoplasm of colon Status: Acute Assessment and Plan: colonoscopy
[2024-12-19 13:07] VITALS: BP 107/61; PULSE 50; RESP 15; O2SAT 100
[2024-12-19 13:17] VITALS: BP 122/65; PULSE 48; RESP 12; O2SAT 100
[2024-12-19 13:27] VITALS: BP 109/57; PULSE 41; RESP 13; O2SAT 100
== END 2024-12-19 13:34 | disposition home or self-care (01) ==
PROVIDERS: Anesthesiology; PCP Family Medicine; Referring Provider Family Medicine; Visit Provider Internal Medicine Gastroenterology
PROC: 0DJD8ZZ Inspection of Lower Intestinal Tract, Via Natural or Artificial Opening Endoscopic (ICD-10-PCS; CPT 45378; principal; 2024-12-19 12:30)
DX: Z12.11 Encounter for screening for malignant neoplasm of colon (principal); K64.8 Other hemorrhoids; K57.30 Diverticulosis of large intestine without perforation or abscess without bleeding; E78.2 Mixed hyperlipidemia; K21.9 Gastro-esophageal reflux disease without esophagitis; I25.10 Atherosclerotic heart disease of native coronary artery without angina pectoris; F41.9 Anxiety disorder, unspecified; R00.2 Palpitations; G89.29 Other chronic pain; M25.552 Pain in left hip; M54.50 Low back pain, unspecified; M19.90 Unspecified osteoarthritis, unspecified site; I25.2 Old myocardial infarction; F17.210 Nicotine dependence, cigarettes, uncomplicated; Z79.82 Long term (current) use of aspirin; Z79.02 Long term (current) use of antithrombotics/antiplatelets; Z98.890 Other specified postprocedural states; Z95.5 Presence of coronary angioplasty implant and graft; Z87.442 Personal history of urinary calculi
CPT/HCPCS: 45378; J2704; J7120